=== PATIENT | male | born 1930 | race Caucasian/White ===

== ENCOUNTER 2017-04-11 08:34 | Emergency (ER) | payer MEDICARE ==
[~2017-04-11] VITALS: Ht 182.9 cm; Wt 90.7 kg
[~2017-04-11 08:34] MED LIST: AMLO10 PO; ASPI81CH PO; ATOR40TA PO; CLOP75 PO; EXEN10PI SQ; GLIP5 PO; HYDCHL25 PO; LOSA50 PO; METO50ER PO; NAC600 MG PO; SIMV40 PO; TAMS.4ER PO; Voltaren100 GM TOP; WARF1 PO; WARF2 PO
[2017-04-11] MEDS ORDERED: METPRE4DP PO (11:29)
[2017-04-11] MEDS ORDERED: Norco 5-325 Ta1 EACH PO (11:29)
[2017-12-13] MEDS ORDERED: METO50 PO (22:27)
[2017-12-16] MEDS ORDERED: CEPH500 PO (12:02)
[2017-12-16] MEDS ORDERED: GUAI600T33 PO (12:11)
[2017-12-16] MEDS ORDERED: LIDO700A20 TOP (12:11)
[2017-12-16] MEDS ORDERED: AZIT500 PO (12:12)
[2017-12-16] MEDS ORDERED: PANT20 PO (12:12)
[2017-12-16] MEDS ORDERED: ACET325 PO (12:13)
== END 2017-04-11 11:40 | disposition home or self-care (01) ==
LOC: ER 08:34
DX: M54.16 Radiculopathy, lumbar region (principal); Z79.899 Other long term (current) drug therapy; Z79.82 Long term (current) use of aspirin; Z79.01 Long term (current) use of anticoagulants; E11.9 Type 2 diabetes mellitus without complications
CPT/HCPCS: 72100; 73502; 96372; 99283; J1100; J1170

== ENCOUNTER 2017-04-13 10:16 | Emergency (ER) | payer MEDICARE ==
[~2017-04-13] VITALS: Ht 167.6 cm; Wt 98.4 kg
[~2017-04-13 10:16] MED LIST changes: +METPRE4DP PO; +Norco 5-325 Ta1 EACH PO
[2017-04-13] MEDS ORDERED: LIDO700A20 TOP (13:29)
[2017-04-13] MEDS ORDERED: Wheelchair1 EACH MC (13:29)
[2017-12-13] MEDS ORDERED: METO50 PO (22:27)
[2017-12-16] MEDS ORDERED: CEPH500 PO (12:02)
[2017-12-16] MEDS ORDERED: GUAI600T33 PO (12:11)
[2017-12-16] MEDS ORDERED: LIDO700A20 TOP (12:11)
[2017-12-16] MEDS ORDERED: PANT20 PO (12:12)
[2017-12-16] MEDS ORDERED: AZIT500 PO (12:12)
[2017-12-16] MEDS ORDERED: ACET325 PO (12:13)
== END 2017-04-13 15:04 | disposition home or self-care (01) ==
LOC: ER 10:16
DX: M54.5 Low back pain (principal); Z79.899 Other long term (current) drug therapy; Z79.82 Long term (current) use of aspirin; Z79.01 Long term (current) use of anticoagulants; Z79.52 Long term (current) use of systemic steroids; E11.9 Type 2 diabetes mellitus without complications; Z87.891 Personal history of nicotine dependence
CPT/HCPCS: 90471; 90714; 99283

== ENCOUNTER 2017-04-22 16:06 | Observation (INO) | payer MEDICARE ==
[~2017-04-22] VITALS: Ht 172.7 cm; Wt 94.2 kg
[~2017-04-22 16:06] MED LIST changes: +LIDO700A20 TOP; +Wheelchair1 EACH MC
[2017-04-22 16:39] LABS: BASOPHILS ABSOLUTE AUTO 0.01 K/mm3 (0.00-0.23); BASOPHILS PERCENT AUTO 0 % (0-2); EOSINOPHILS ABSOLUTE AUTO 0.12 K/mm3 (0.00-0.68); EOSINOPHILS PERCENT AUTO 1 % (0-6); Hematocrit 47.3 % (37.0-53.0); Hemoglobin 15.7 g/dL (13.5-17.5); IMMATURE GRAN ABSOLUTE AUTO 0.05 K/mm3 (0.00-0.10); IMMATURE GRAN PERCENT AUTO 0 % (0-1); LYMPHOCYTES ABSOLUTE AUTO 0.93 K/mm3 (0.84-5.20); LYMPHOCYTES PERCENT AUTO 8 % (21-46); MONOCYTES PERCENT AUTO 11 % (4-13); Mean Corpuscular HGB 29.6 pg (26.0-34.0); Mean Corpuscular HGB Conc 33.2 g/dL (31.5-36.5); Mean Corpuscular Volume 89 fL (80-100); Mean Platelet Volume 11.4 fL (9.1-12.4); NEUTROPHILS ABSOLUTE AUTO 9.41 K/mm3 (1.96-9.15); NEUTROPHILS PERCENT AUTO 80 % (41-73); Platelet Count 190 K/mm3 (150-400); RDW Coefficient Variation 13.2 % (11.7-14.2); RDW Standard Deviation 43.3 fL (35.1-46.3); Red Blood Cell Count 5.31 M/mm3 (4.30-5.90); White Blood Cell Count 11.82 K/mm3 (4.00-11.30)
[2017-04-22 16:56] LABS: Bun/Creatinine Ratio 37.3 (12.0-20.0); Calcium, Blood 8.9 mg/dL (8.5-10.1); Creatinine, Blood 1.5 mg/dL (0.60-1.20); Potassium, Blood 3.6 mmol/L (3.5-5.5)
[2017-04-22 17:07] LABS: International Normalized Ratio 4.76
[2017-04-22] MEDS ORDERED: HYDR1TAB94 PO (19:35)
[2017-04-22] MEDS ORDERED: SIMV40 PO (23:07)
[2017-04-22] MEDS ORDERED: METO50 PO (23:14)
[2017-04-22] MEDS ORDERED: COLACE 2-IN-11 EACH PO (23:17)
[2017-04-22] MEDS ORDERED: GLIP5 PO (23:18)
[2017-04-23 05:18] LABS: BASOPHILS ABSOLUTE AUTO 0.02 K/mm3 (0.00-0.23); BASOPHILS PERCENT AUTO 0 % (0-2); EOSINOPHILS ABSOLUTE AUTO 0.16 K/mm3 (0.00-0.68); EOSINOPHILS PERCENT AUTO 2 % (0-6); Hematocrit 44.7 % (37.0-53.0); Hemoglobin 14.5 g/dL (13.5-17.5); IMMATURE GRAN ABSOLUTE AUTO 0.03 K/mm3 (0.00-0.10); IMMATURE GRAN PERCENT AUTO 0 % (0-1); LYMPHOCYTES ABSOLUTE AUTO 0.85 K/mm3 (0.84-5.20); LYMPHOCYTES PERCENT AUTO 10 % (21-46); MONOCYTES ABSOLUTE AUTO 1.12 K/mm3 (0.16-1.47); MONOCYTES PERCENT AUTO 13 % (4-13); Mean Corpuscular HGB 29.2 pg (26.0-34.0); Mean Corpuscular HGB Conc 32.4 g/dL (31.5-36.5); Mean Corpuscular Volume 90 fL (80-100); Mean Platelet Volume 11.5 fL (9.1-12.4); NEUTROPHILS ABSOLUTE AUTO 6.79 K/mm3 (1.96-9.15); NEUTROPHILS PERCENT AUTO 76 % (41-73); Platelet Count 152 K/mm3 (150-400); RDW Coefficient Variation 13.2 % (11.7-14.2); RDW Standard Deviation 44.7 fL (35.1-46.3); Red Blood Cell Count 4.97 M/mm3 (4.30-5.90); White Blood Cell Count 8.97 K/mm3 (4.00-11.30)
[2017-04-23 05:37] LABS: Prothrombin Time Results 46.4 Sec (9.7-11.5)
[2017-04-23 05:44] LABS: International Normalized Ratio 4.27
[2017-04-23 05:53] LABS: Albumin, Blood 2.8 g/dL (3.4-5.0); Albumin/Globulin Ratio 0.9 (0.8-1.8); Bilirubin, Total 0.7 mg/dL (0.1-1.0); Bun/Creatinine Ratio 38.6 (12.0-20.0); Creatinine, Blood 1.32 mg/dL (0.60-1.20); Potassium, Blood 3.5 mmol/L (3.5-5.5); Total Protein, Blood 5.8 g/dL (6.4-8.2)
[2017-04-24 05:24] LABS: BASOPHILS ABSOLUTE AUTO 0.02 K/mm3 (0.00-0.23); BASOPHILS PERCENT AUTO 0 % (0-2); EOSINOPHILS PERCENT AUTO 1 % (0-6); Hematocrit 40.3 % (37.0-53.0); Hemoglobin 13.1 g/dL (13.5-17.5); IMMATURE GRAN ABSOLUTE AUTO 0.03 K/mm3 (0.00-0.10); IMMATURE GRAN PERCENT AUTO 0 % (0-1); LYMPHOCYTES PERCENT AUTO 11 % (21-46); MONOCYTES ABSOLUTE AUTO 1.01 K/mm3 (0.16-1.47); MONOCYTES PERCENT AUTO 13 % (4-13); Mean Corpuscular HGB 29.6 pg (26.0-34.0); Mean Corpuscular HGB Conc 32.5 g/dL (31.5-36.5); Mean Corpuscular Volume 91 fL (80-100); Mean Platelet Volume 11.2 fL (9.1-12.4); NEUTROPHILS ABSOLUTE AUTO 6.04 K/mm3 (1.96-9.15); NEUTROPHILS PERCENT AUTO 75 % (41-73); Platelet Count 145 K/mm3 (150-400); RDW Coefficient Variation 13.4 % (11.7-14.2); RDW Standard Deviation 45.2 fL (35.1-46.3); Red Blood Cell Count 4.43 M/mm3 (4.30-5.90)
[2017-04-24 05:41] LABS: International Normalized Ratio 2.74; Prothrombin Time Results 29.4 Sec (9.7-11.5)
[2017-04-24 05:52] LABS: Bun/Creatinine Ratio 29.2 (12.0-20.0); Calcium, Blood 7.7 mg/dL (8.5-10.1); Creatinine, Blood 1.3 mg/dL (0.60-1.20); Potassium, Blood 4.1 mmol/L (3.5-5.5)
[2017-04-25 05:56] LABS: International Normalized Ratio 1.98
[2017-04-26 05:44] LABS: International Normalized Ratio 1.71; Prothrombin Time Results 18.1 Sec (9.7-11.5)
[2017-04-27 05:11] LABS: International Normalized Ratio 1.98
[2017-04-28 04:41] LABS: International Normalized Ratio 2.15; Prothrombin Time Results 22.9 Sec (9.7-11.5)
[2017-04-29 06:17] LABS: International Normalized Ratio 2.31; Prothrombin Time Results 24.7 Sec (9.7-11.5)
[2017-04-30 05:39] LABS: International Normalized Ratio 3.29; Prothrombin Time Results 35.5 Sec (9.7-11.5)
[2017-04-30] MEDS ORDERED: FURO40 PO (11:39)
[2017-04-30] MEDS ORDERED: FAMO20 PO (11:40)
[2017-04-30] MEDS ORDERED: GAVILAX17 GM PO (11:41)
[2017-04-30] MEDS ORDERED: Percocet 5-3251 EACH PO (11:43)
[2017-04-30] MEDS ORDERED: TAMS.4ER PO (11:44)
[2017-04-30] MEDS ORDERED: SENN187 PO (11:46)
[2017-04-30] MEDS ORDERED: CLOP75 PO (16:36)
[2017-12-13] MEDS ORDERED: METO50 PO (22:27)
[2017-12-16] MEDS ORDERED: CEPH500 PO (12:02)
[2017-12-16] MEDS ORDERED: GUAI600T33 PO (12:11)
[2017-12-16] MEDS ORDERED: LIDO700A20 TOP (12:11)
[2017-12-16] MEDS ORDERED: AZIT500 PO (12:12)
[2017-12-16] MEDS ORDERED: PANT20 PO (12:12)
[2017-12-16] MEDS ORDERED: ACET325 PO (12:13)
== END 2017-04-30 14:12 | disposition home or self-care (01) ==
LOC: ER 16:06 → MEDS 16:07 → ER 18:13 → MEDS 18:13 → ER 04-24 13:54 → MEDS 04-24 13:54
PROVIDERS: Emergency Medicine; Internal Medicine
DX: M47.816 Spondylosis without myelopathy or radiculopathy, lumbar region (principal); M48.061 Spinal stenosis, lumbar region without neurogenic claudication; S39.012A Strain of muscle, fascia and tendon of lower back, initial encounter; I13.0 Hypertensive heart and chronic kidney disease with heart failure and stage 1 through stage 4 chronic kidney disease, or unspecified chronic kidney disease; E11.22 Type 2 diabetes mellitus with diabetic chronic kidney disease; N18.9 Chronic kidney disease, unspecified; I50.9 Heart failure, unspecified; E86.0 Dehydration; I48.91 Unspecified atrial fibrillation; K21.9 Gastro-esophageal reflux disease without esophagitis; N40.0 Benign prostatic hyperplasia without lower urinary tract symptoms; R26.9 Unspecified abnormalities of gait and mobility; I25.10 Atherosclerotic heart disease of native coronary artery without angina pectoris; I35.0 Nonrheumatic aortic (valve) stenosis; K59.00 Constipation, unspecified; Z95.5 Presence of coronary angioplasty implant and graft; Z96.643 Presence of artificial hip joint, bilateral; Z98.890 Other specified postprocedural states; Z95.0 Presence of cardiac pacemaker; Z79.82 Long term (current) use of aspirin; Z79.84 Long term (current) use of oral hypoglycemic drugs; Z79.899 Other long term (current) drug therapy; Z79.01 Long term (current) use of anticoagulants; W19.XXXA Unspecified fall, initial encounter
CPT/HCPCS: 36415; 71046; 72131; 72192; 73552; 74019; 80048; 80053; 82947; 83036; 83880; 85025; 85610; 85651; 87081; 96360; 96361; 97110; 97116; 97161; 97530; 99285; G0378; G8978; G8979; J3480; J7030

== ENCOUNTER 2018-09-08 17:11 | Inpatient (IN) | payer MEDICARE ==
[~2018-09-08] VITALS: Ht 152.4 cm; Wt 97.9 kg
[~2018-09-08 17:11] MED LIST changes: +ACET325 PO; +AZIT500 PO; +CEPH500 PO; +COLACE 2-IN-11 EACH PO; -EXEN10PI SQ; +EXEN5PENI SC; +FAMO20 PO; +FURO40 PO; +GAVILAX17 GM PO; +GUAI600T33 PO; +HYDR1TAB94 PO; +METO50 PO; +PANT20 PO; +Percocet 5-3251 EACH PO; +SENN187 PO
[2018-09-08] MEDS ORDERED: ATOR40TA (17:38)
[2018-09-08] MEDS ORDERED: POTA10T PO (17:39)
[2018-09-08] MEDS ORDERED: OMEP20ER PO (17:39)
[2018-09-08] MEDS ORDERED: MELATONIN5 M1 PO (17:39)
[2018-09-08] MEDS ORDERED: SPIR25 PO (17:40)
[2018-09-08 18:15] LABS: BASOPHILS ABSOLUTE AUTO 0.03 K/mm3 (0.00-0.23); BASOPHILS PERCENT AUTO 0 % (0-2); EOSINOPHILS ABSOLUTE AUTO 0.03 K/mm3 (0.00-0.68); EOSINOPHILS PERCENT AUTO 0 % (0-6); Hematocrit 40.3 % (37.0-53.0); Hemoglobin 11.6 g/dL (13.5-17.5); IMMATURE GRAN ABSOLUTE AUTO 0.02 K/mm3 (0.00-0.10); IMMATURE GRAN PERCENT AUTO 0 % (0-1); LYMPHOCYTES PERCENT AUTO 8 % (21-46); MONOCYTES ABSOLUTE AUTO 0.88 K/mm3 (0.16-1.47); MONOCYTES PERCENT AUTO 10 % (4-13); Mean Corpuscular HGB 22.5 pg (26.0-34.0); Mean Corpuscular HGB Conc 28.8 g/dL (31.5-36.5); Mean Corpuscular Volume 78 fL (80-100); NEUTROPHILS ABSOLUTE AUTO 7.05 K/mm3 (1.96-9.15); NEUTROPHILS PERCENT AUTO 81 % (41-73); Platelet Count 271 K/mm3 (150-400); RDW Coefficient Variation 22.5 % (11.7-14.2); RDW Standard Deviation 63.7 fL (35.1-46.3); Red Blood Cell Count 5.15 M/mm3 (4.30-5.90); White Blood Cell Count 8.71 K/mm3 (4.00-11.30)
[2018-09-08 18:54] LABS: C-REACTIVE PROTEIN, EXT RANGE 1.28 mg/dL (0.000-0.300)
[2018-09-08 19:02] LABS: Albumin, Blood 3.5 g/dL (3.4-5.0); Albumin/Globulin Ratio 0.9 (0.8-1.8); Bilirubin, Total 0.8 mg/dL (0.1-1.0); Bun/Creatinine Ratio 30.3 (12.0-20.0); Calcium, Blood 8.9 mg/dL (8.5-10.1); Creatinine, Blood 1.32 mg/dL (0.60-1.20); Globulin, Blood 3.7 g/dL (2.2-4.0); Total Protein, Blood 7.2 g/dL (6.4-8.2)
[2018-09-08 21:20] LABS: International Normalized Ratio 2.69; Prothrombin Time Results 26.1 Sec (9.7-11.5)
[2018-09-08] MEDS ORDERED: WARF1 PO (22:48)
--- NOTE | 2018-09-08 23:53 | NUR ---
PT C/O LEFT KNEE PAIN 10/25 AND VOICED THAT HE DOESN'T WANT [id number] HE TOOK THIS AT HOME AND IT DIDN'T WORK. Basil BORGES NP NOTIFIED WITH WITH FENTANYL 25-50MCG, IV, Q4P; NORCO 5/325MG, Q4P, SENNA 8.6MG BID ORDERS RECEIVED.
--- NOTE | 2018-09-09 02:24 | NUR ---
09/08/18 2220 PT ADMITTED TO ROOM 355 PER CART FROM ER. PT ORIENTED TO ROOM.
[2018-09-09 04:44] LABS: Hematocrit 39.3 % (37.0-53.0); Hemoglobin 11.4 g/dL (13.5-17.5); Mean Corpuscular HGB 22.6 pg (26.0-34.0); Mean Corpuscular Volume 78 fL (80-100); Mean Platelet Volume 10.1 fL (9.1-12.4); Platelet Count 247 K/mm3 (150-400); RDW Coefficient Variation 22.7 % (11.7-14.2); RDW Standard Deviation 62.6 fL (35.1-46.3); Red Blood Cell Count 5.04 M/mm3 (4.30-5.90)
--- NOTE | 2018-09-09 05:01 | NUR ---
SHIFT SUMMARY: 87 Y/O MALE RESTED COMFORTABLY ALL SHIFT AFTER TAKING NORCO 5/325MG PO X 1 FOR LEFT KNEE DISCOMFORT AT 0022 (ICE PACKS APPLIED AND LEFT LEG ELEVATED ON 1 PILLOW). PT HAPPY AND COOPERATIVE, DECLINED TO WEAR SUNIL HOSE PATIENT FELT THEY WOULD BE TOO TIGHT ON HIS LEGS, LLE HAS SHINY TIGHT SKIN, REDDENED, NO OPEN WOUNDS, ICE PACK APPLIED WITH ELEVATION ON ONE PILLOW BY NURSING STAFF, ALERT AND ORIENTED X 4, CHEERFUL, BED ALARM APPLIED, BED LOW POSITION, CALL LIGHT AT SIDE.
[2018-09-09 05:08] LABS: Bun/Creatinine Ratio 32.3 (12.0-20.0); Calcium, Blood 8.3 mg/dL (8.5-10.1); Creatinine, Blood 1.33 mg/dL (0.60-1.20); Potassium, Blood 4.1 mmol/L (3.5-5.5)
[2018-09-09 10:29] LABS: International Normalized Ratio 2.24; Prothrombin Time Results 22.1 Sec (9.7-11.5)
[2018-09-09 14:59] LABS: Body Fluid Crystals NEG (NEGATIVE)
--- NOTE | 2018-09-09 16:14 | NUR ---
Upon receiving a referral from an admit trigger, I found patient is lying in bed and alert. Patient is pleasant and talkative. I conduct a life review, provide companionship and emotional support.
[2018-09-09 16:19] LABS: BODY FLUID RBC 0.063 (0-0); RBC Count, Synovial Fluid 63000 /mm3 (0-0); WBC Count, Synovial Fluid 486 /mm3 (0-180)
[2018-09-09 16:24] LABS: Lymphs, Synovial Fluid 4 % (0-15); Monocytes/Macrophages, Synovia 33 % (0-65); Neutrophils, Synovial Fluid 63 % (0-24)
[2018-09-09 16:25] LABS: Appearance, Synovial Fluid Bloody (Clear); Color, Synovial Fluid Red (None-P Yel)
--- NOTE | 2018-09-09 18:54 | NUR ---
SHIFT SUMMARY DRES HAD AN ULTRASOUND GUIDED BIOPSY THIS SHIFT OF HIS L KNEE. GOT UP AND WALKED IN HALLS WITH PT WITH GAIT BELT AND WALKER AND AO1. DR LEE CAME BY AND STATED THAT HE COULD EAT, HE DIDN'T HAVE A SEPTIC JOINT. TELE DC'D. RECEIVED PO PAIN MEDS X2 THIS SHIFT TO GOOD EFFECT. DAUGHTER VISITED. AO1 TO BR, CALLED APPROPRIATELY. CALL LIGHT IN REACH, NIGHT NURSE GIVEN REPORT
[2018-09-10 04:58] LABS: BASOPHILS ABSOLUTE AUTO 0.01 K/mm3 (0.00-0.23); BASOPHILS PERCENT AUTO 0 % (0-2); EOSINOPHILS PERCENT AUTO 0 % (0-6); Hematocrit 39.9 % (37.0-53.0); Hemoglobin 11.5 g/dL (13.5-17.5); IMMATURE GRAN ABSOLUTE AUTO 0.02 K/mm3 (0.00-0.10); IMMATURE GRAN PERCENT AUTO 0 % (0-1); LYMPHOCYTES ABSOLUTE AUTO 0.42 K/mm3 (0.84-5.20); LYMPHOCYTES PERCENT AUTO 6 % (21-46); MONOCYTES ABSOLUTE AUTO 0.33 K/mm3 (0.16-1.47); MONOCYTES PERCENT AUTO 5 % (4-13); Mean Corpuscular HGB 22.9 pg (26.0-34.0); Mean Corpuscular HGB Conc 28.8 g/dL (31.5-36.5); Mean Corpuscular Volume 79 fL (80-100); Mean Platelet Volume 10.4 fL (9.1-12.4); NEUTROPHILS ABSOLUTE AUTO 6.43 K/mm3 (1.96-9.15); NEUTROPHILS PERCENT AUTO 89 % (41-73); Platelet Count 248 K/mm3 (150-400); RDW Coefficient Variation 22.4 % (11.7-14.2); RDW Standard Deviation 63.7 fL (35.1-46.3); Red Blood Cell Count 5.03 M/mm3 (4.30-5.90); White Blood Cell Count 7.21 K/mm3 (4.00-11.30)
--- NOTE | 2018-09-10 05:00 | NUR ---
SHIFT SUMMARY: 87 Y/O MALE RESTED COMFORTABLY ALL SHIFT, DECREASED REDNESS NOTED TO LLE, ABLE TO AMBULATE TO BATHROOM AND BACK VIA WALKER WITH WALKER X 1 STANDBY ASSIST, ALERT AND ORIENTED X 4, C/O LLE PAIN 07/25 AND MEDICATED WITH NORCO 5/325MG X 1 PILL WITH RELIEF FELT; BED ALARM APPLIED, BED LOW POSITION, CALL LIGHT AT SIDE.
[2018-09-10 05:12] LABS: International Normalized Ratio 1.93; Prothrombin Time Results 19.3 Sec (9.7-11.5)
[2018-09-10 05:42] LABS: Bun/Creatinine Ratio 33.3 (12.0-20.0); Calcium, Blood 8.5 mg/dL (8.5-10.1); Creatinine, Blood 1.41 mg/dL (0.60-1.20); Potassium, Blood 4.3 mmol/L (3.5-5.5)
--- NOTE | 2018-09-10 16:51 | NUR ---
PT HAS BEEN DOING WELL. AOX4 AND COOPERATIVE OF CARE. PT DOING WELL WITH PAIN. MINIMAL SWELLING OF L KNEE. TREATED FOR PAIN PER EMAR. PT STANDBY ASSIST WITH FRONT WHEELWALKER.WILL CONTINUE TO MONITOR.
[2018-09-10 19:21] LABS: Vancomycin, Trough 13.4 ug/mL (5.0-10.0)
--- NOTE | 2018-09-10 21:13 | NUR ---
PT GIVEN SHOWER THIS EVENING BY NURSING STAFF WITH COMPLETE BED LINEN CHANGE.
[2018-09-11 05:27] LABS: BASOPHILS ABSOLUTE AUTO 0.01 K/mm3 (0.00-0.23); BASOPHILS PERCENT AUTO 0 % (0-2); EOSINOPHILS PERCENT AUTO 0 % (0-6); Hematocrit 38.5 % (37.0-53.0); Hemoglobin 10.9 g/dL (13.5-17.5); IMMATURE GRAN ABSOLUTE AUTO 0.03 K/mm3 (0.00-0.10); IMMATURE GRAN PERCENT AUTO 0 % (0-1); LYMPHOCYTES ABSOLUTE AUTO 0.52 K/mm3 (0.84-5.20); LYMPHOCYTES PERCENT AUTO 5 % (21-46); MONOCYTES ABSOLUTE AUTO 0.93 K/mm3 (0.16-1.47); MONOCYTES PERCENT AUTO 9 % (4-13); Mean Corpuscular HGB 22.6 pg (26.0-34.0); Mean Corpuscular HGB Conc 28.3 g/dL (31.5-36.5); Mean Corpuscular Volume 80 fL (80-100); Mean Platelet Volume 10.1 fL (9.1-12.4); NEUTROPHILS PERCENT AUTO 86 % (41-73); NRBC ABSOLUTE 0.02 K/mm3 (0.00-0.02); NRBC Auto 0.2 /100 WBC (0.0-0.2); Platelet Count 239 K/mm3 (150-400); RDW Coefficient Variation 22.4 % (11.7-14.2); Red Blood Cell Count 4.83 M/mm3 (4.30-5.90); White Blood Cell Count 10.79 K/mm3 (4.00-11.30)
[2018-09-11 05:41] LABS: International Normalized Ratio 2.21; Prothrombin Time Results 21.8 Sec (9.7-11.5)
[2018-09-11 05:58] LABS: C-REACTIVE PROTEIN, EXT RANGE 1.16 mg/dL (0.000-0.300)
[2018-09-11 06:03] LABS: Bun/Creatinine Ratio 37.5 (12.0-20.0); Calcium, Blood 8.5 mg/dL (8.5-10.1); Creatinine, Blood 1.44 mg/dL (0.60-1.20); Potassium, Blood 4.4 mmol/L (3.5-5.5)
[2018-09-11] MEDS ORDERED: PRED20 PO (12:17)
--- NOTE | 2018-09-11 12:48 | NUR ---
DISCHARGE NOTE- PT DAUGHTER WAS PRESENT FOR DISCHARGE TEACHING. PT WAS GIVEN VERBAL AND WRITTEN DISCHARGE INSTRUCTIONS AND ACKNOWLEDGED UNDERSTANDING OF THEM. PT IV DC'D PRIOR TO DISCHARGE, PT MEDICATD FOR PAIN AT THE TIME OF DISCHARGE. PT WAS ESCORTED BY THE CONSTRUCTION WORKER VIA W/C TO THE PT ENTRANCE WHERE HIS DAUGHTER WAS WAITING. NO FURTHER QUESTIONS AT THE TIME OF DISCHARGE, PT HAD A HARD COPY SCRIPT FOR NORCO WELL SCRIPTS THAT WERE FAXED TO [facility], PER PT REQUEST. PT WAS PROVIDED WITH CONTACT INFO SHOULD QUESTIONS ARRISE.
== END 2018-09-11 12:30 | disposition home or self-care (01) | DRG 554 ==
LOC: ER 17:11 → MEDS 21:22
PROVIDERS: Family Medicine; Nurse Practitioner Acute Care; Physician Assistant; ADMIT Internal Medicine
PROC: 0S9D3ZX Drainage of Left Knee Joint, Percutaneous Approach, Diagnostic (ICD-10-PCS; principal; 2018-09-08)
DX: M10.062 Idiopathic gout, left knee (principal); I13.0 Hypertensive heart and chronic kidney disease with heart failure and stage 1 through stage 4 chronic kidney disease, or unspecified chronic kidney disease; I50.32 Chronic diastolic (congestive) heart failure; L03.116 Cellulitis of left lower limb; M17.12 Unilateral primary osteoarthritis, left knee; N18.3 Chronic kidney disease, stage 3 (moderate); E11.22 Type 2 diabetes mellitus with diabetic chronic kidney disease; Z95.0 Presence of cardiac pacemaker; Z96.643 Presence of artificial hip joint, bilateral; I25.10 Atherosclerotic heart disease of native coronary artery without angina pectoris; I48.2 Chronic atrial fibrillation; K59.00 Constipation, unspecified; Z87.891 Personal history of nicotine dependence; Z79.01 Long term (current) use of anticoagulants
CPT/HCPCS: 20610; 20611; 36415; 76942; 80048; 80053; 80202; 82947; 83605; 83880; 84550; 85025; 85027; 85610; 85651; 86140; 87040; 87070; 87075; 87081; 87205; 89051; 89060; 96365-59; 96366-59; 96367-59; 97116; 97161; 99284-25; A9270-GY; J0696; J3370; J7050; J7512

== ENCOUNTER 2018-12-10 02:32 | Inpatient (IN) | payer MEDICARE ==
[~2018-12-10] VITALS: Ht 170.2 cm; Wt 103.4 kg
[~2018-12-10 02:32] MED LIST changes: +ATOR40TA; +MELATONIN5 M1 PO; +OMEP20ER PO; +POTA10T PO; +PRED20 PO; +SPIR25 PO
[2018-12-10 03:42] LABS: BASOPHILS ABSOLUTE AUTO 0.03 K/mm3 (0.00-0.23); BASOPHILS PERCENT AUTO 0 % (0-2); EOSINOPHILS ABSOLUTE AUTO 0.12 K/mm3 (0.00-0.68); EOSINOPHILS PERCENT AUTO 2 % (0-6); Hematocrit 40.9 % (37.0-53.0); Hemoglobin 11.2 g/dL (13.5-17.5); IMMATURE GRAN ABSOLUTE AUTO 0.02 K/mm3 (0.00-0.10); IMMATURE GRAN PERCENT AUTO 0 % (0-1); LYMPHOCYTES ABSOLUTE AUTO 0.94 K/mm3 (0.84-5.20); LYMPHOCYTES PERCENT AUTO 12 % (21-46); MONOCYTES ABSOLUTE AUTO 0.97 K/mm3 (0.16-1.47); MONOCYTES PERCENT AUTO 12 % (4-13); Mean Corpuscular HGB 20.9 pg (26.0-34.0); Mean Corpuscular HGB Conc 27.4 g/dL (31.5-36.5); Mean Corpuscular Volume 76 fL (80-100); Mean Platelet Volume 10.9 fL (9.1-12.4); NEUTROPHILS ABSOLUTE AUTO 5.95 K/mm3 (1.96-9.15); NEUTROPHILS PERCENT AUTO 74 % (41-73); Platelet Count 293 K/mm3 (150-400); RDW Coefficient Variation 20.3 % (11.7-14.2); RDW Standard Deviation 54.3 fL (35.1-46.3); Red Blood Cell Count 5.36 M/mm3 (4.30-5.90); White Blood Cell Count 8.03 K/mm3 (4.00-11.30)
[2018-12-10 03:57] LABS: Albumin, Blood 3.2 g/dL (3.4-5.0); Albumin/Globulin Ratio 0.8 (0.8-1.8); Bilirubin, Total 0.5 mg/dL (0.1-1.0); Bun/Creatinine Ratio 40.7 (12.0-20.0); Calcium, Blood 8.5 mg/dL (8.5-10.1); Creatinine, Blood 1.67 mg/dL (0.60-1.20); Globulin, Blood 3.8 g/dL (2.2-4.0); Troponin I 0.081 ng/mL (0.000-0.040)
[2018-12-10 04:00] LABS: International Normalized Ratio 3.63; Prothrombin Time Results 34.2 Sec (9.7-11.5)
[2018-12-10 05:56] LABS: Percent Saturation 3.2 % (20.0-50.0)
--- NOTE | 2018-12-10 08:14 | NUR ---
DR PEGUERO IN TO SEE PT.
[2018-12-10] MEDS ORDERED: AMLO10 PO (08:37)
[2018-12-10] MEDS ORDERED: ATOR40TA PO (08:38)
[2018-12-10] MEDS ORDERED: Aspir 8181 MG PO (08:38)
[2018-12-10] MEDS ORDERED: Docusate Sodiu1 EACH PO (08:42)
[2018-12-10] MEDS ORDERED: LOSA25 PO (08:42)
--- NOTE | 2018-12-10 09:34 | NUR ---
ECHO IN PROGRESS.
[2018-12-10 09:35] LABS: International Normalized Ratio 3.98
[2018-12-10 09:44] LABS: Prothrombin Time Results 37.2 Sec (9.7-11.5)
--- NOTE | 2018-12-10 10:27 | NUR ---
ECHOCARDIOGRAM COMPLETED
[2018-12-10 11:11] LABS: Bun/Creatinine Ratio 42.6 (12.0-20.0); Calcium, Blood 8.6 mg/dL (8.5-10.1); Creatinine, Blood 1.62 mg/dL (0.60-1.20)
[2018-12-10] MEDS ORDERED: METO5 PO (11:42)
[2018-12-10] MEDS ORDERED: LIPOIC ACID PO (11:43)
[2018-12-10] MEDS ORDERED: VOLTAREN100 GM TOP (11:44)
--- NOTE | 2018-12-10 17:30 | NUR ---
SHIFT SUMMARY- PT A/O PLESANT AND COOPERATIVE. PT RECIEVING IV LASIX AND IS DIURESSING WELL. PT EXPRESSED FEELING LIKE HE STILL NEEDED TO VOID AFTER USING THE URINAL, DID BLADDER SCAN AND THERE WAS 122 RESIDUAL VOLUME. PT INTERMITENTLY COUGHING.
[2018-12-10 21:18] LABS: International Normalized Ratio 3.36
[2018-12-10 21:25] LABS: Prothrombin Time Results 31.9 Sec (9.7-11.5)
--- NOTE | 2018-12-10 22:40 | NUR ---
VITAMIN C LAB DRAW THIS RN WAS CALLED BY LAB ASKING FOR CLARIFICATION ON ORDER FOR VITAMIN C LAB DRAW. THE LAB DRAW ORDER WAS FOR VITAMIN C TID X 12 DAYS IF IT WAS MEANT TO BE A MEDICATION ORDER BUT WAS PUT IN A LAB DRAW. PT CURRENTLY HAS A MEDICATION ORDER WELL FOR VITAMIN C 500 MG PO TID TO BE GIVEN WITH FERROUS SULFATE TO AID IN ABSORBTION. THIS LAB DRAW IS A SEND OUT WELL SO RESULTS WOULD NOT BE RECIEVED IMMEDIATELY. CALLED DR. DE LA FUENTE FOR CLARIFICATION. DR. DE LA FUENTE ORDERED TO HOLD LAB DRAWS UNTIL TOMORROW WHEN DAY SHIFT HOSPITALIST OR DR. TERRY COULD CLARIFY. LAB NOTIFIED.
[2018-12-11 04:50] LABS: International Normalized Ratio 2.55
[2018-12-11 04:56] LABS: Bun/Creatinine Ratio 42.1 (12.0-20.0); Calcium, Blood 8.6 mg/dL (8.5-10.1); Creatinine, Blood 1.71 mg/dL (0.60-1.20); Potassium, Blood 4.2 mmol/L (3.5-5.5)
[2018-12-11 04:57] LABS: Prothrombin Time Results 24.8 Sec (9.7-11.5)
--- NOTE | 2018-12-11 05:29 | NUR ---
SHIFT SUMMARY PT DID NOT SLEEP WELL THIS EVENING. WAKING FREQUENTLY TO VOID. NO COMPLAINTS OF CHEST PAIN OR DISCOMFORT. TELEMETRY READING PACED W/ BBB AT 64. OLD NITRO PATCH REMOVED AT 2200 AND NEW ONE PLACED THIS AM AT 0530. PT DOES GET SOB W/ EXERTION, WHEEZING WHEN BECOMING SOB. RESOLVES ONCE AGAIN RESTING. INR THIS AM WITH LAB 2.55. TROPONIN DROPPED AGAIN THIS EVENING TO 0.082. LITTLE CHANGE TO EDEMA IN BLE'S. VITAL SIGNS STABLE. WILL CONTINUE TO MONITOR.
[2018-12-11 09:26] LABS: International Normalized Ratio 2.4; Prothrombin Time Results 23.5 Sec (9.7-11.5)
--- NOTE | 2018-12-11 17:44 | NUR ---
PT A/O COOPERATIVE AND PLESANT. PT CONTINUED TO RECIEVE IV DIRUETIC AND ADDED ORAL DIRUETIC TODAY. PT RECIEVED IV IRON THIS AFTERNOON. DR DISCUSSED WITH PT DAUGHTER PLAN FOR DISCHARGE. CONSULT WITH BOWLING BALL WEIGHER AND PACKER THIS AFTERNOON AND BOWLING BALL WEIGHER AND PACKER AGREED WITH DR. PHILLIPS PLAN OF CARE. PT WILL REMAIN UNTIL WEDNESDAY AND THERE IS NO NEED FOR PT TO GO TO [facility]IE[facility] [employer]. PT DENIES ANY CHEST PAIN THIS SHIFT
[2018-12-11 21:24] LABS: International Normalized Ratio 1.99; Prothrombin Time Results 19.8 Sec (9.7-11.5)
[2018-12-12 04:34] LABS: International Normalized Ratio 1.76; Prothrombin Time Results 17.7 Sec (9.7-11.5)
[2018-12-12 04:40] LABS: Bun/Creatinine Ratio 40.6 (12.0-20.0); Creatinine, Blood 1.87 mg/dL (0.60-1.20); Potassium, Blood 4.3 mmol/L (3.5-5.5)
[2018-12-12 04:51] LABS: Thyroid Stimulating Hormone 3.04 uIU/mL (0.360-4.800)
[2018-12-12 05:02] LABS: Free Thyroxine 1.12 ng/dL (0.70-1.60); Triiodothyronine, Free 1.78 pg/mL (2.18-3.98)
--- NOTE | 2018-12-12 05:28 | NUR ---
SHIFT SUMMARY: VSS. ALERT AND RESPONDING APPROPRIATELY TO QUESTIONS. WISHES TO SLEEP THROUGHT THE NIGHT BUT REPORTS CONSISTENTLY WAKING UP HOURLY TO VOID. PT AWARE HE IS TAKING MEDS TO DIURESE. CONTINUES WITH 4+ PITTING EDEMA IN BLE FROM TOES TO UPPER THIGHS. RED AND PEELING SKIN TO B ANT SHINS AND DORSAL SURFACE OF R FOOT. RED AREAS NOT HOT TO TOUCH. GROIN VERY RED. ANTIFUNGAL POWDER APPLIED ORDERED. DENIES PAIN WITH THIS. SLEEP STUDY COMPLETED TONIGHT. SOB OBSERVED WITH EXERTION. LARGE ABDOMEN APPEARS TO CONTRIBUTE TO SOB ELEVATING HOB HELPS SOME. 02 SATS LOW 90S ON RA. DENIES CHEST PAIN. DENIES N/V. INDEPENDENTLY USES URINAL. MAKING NEEDS KNOWN. CALL LIGHT IN REACH. BED LOW.
--- NOTE | 2018-12-12 17:20 | NUR ---
PT AOX4 AND COOPERATIVE OF CARE. PT HAS BEEN SITTING AT THE SIDE OF THE BE A LOT TODAY AND USING HIS URINIAL. PT SOUNDS LIKE HE BREATHS EASIER WHEN SITTING UPRIGHT. PT DOES TOLERATE LAYING DOWN TO SLEEP. PT CALLS APPROPRIATELY, NO DISTRESS NOTED. WILL CONTINUE TO MONITOR.
--- NOTE | 2018-12-13 04:38 | NUR ---
SHIFT SUMMARY- PT. A&O, 1 ASSIST W/WALKER TO BATHROOM. UNABLE TO SLEEP MUCH T/O THE NIGHT HAVING URINARY FREQUENCY. PT. C/O CONSTIPATION, [place] PRN GIVEN PER EMAR. NO BM YET. PT. SOB ON EXERTION, IMPROVES UPON RETURNING TO BED. O2 SATS WNL, NO APPARENT DISTRESS NOTED. PT. DENIES ANY PAIN OR DISCOMFORT. CALL LIGHT WITHIN REACH AND SIDE RAILS UP X2. PT. CALLS APPROPRIATELY WHEN NEEDS ASSISTANCE. WILL CONT TO MONITOR.
[2018-12-13 04:56] LABS: International Normalized Ratio 1.54; Prothrombin Time Results 15.7 Sec (9.7-11.5)
[2018-12-13 04:59] LABS: Bun/Creatinine Ratio 42.6 (12.0-20.0); Calcium, Blood 8.9 mg/dL (8.5-10.1); Creatinine, Blood 1.9 mg/dL (0.60-1.20); Potassium, Blood 4.3 mmol/L (3.5-5.5)
--- NOTE | 2018-12-13 18:49 | NUR ---
PT AOX4 AND COOPERATIVE OF CARE. PT DOING WELL AND HAS WORKED WITH PHYSICAL THERAPY AND OT. PT STILL GET SOB WITH TRANSFERING FROM RESTROOM. PT UP FOR MEALS AND CALLS APPROPRIATELY. DENIES PAIN. NO DISTRESS NOTED.
[2018-12-14 05:24] LABS: International Normalized Ratio 1.54; Prothrombin Time Results 15.7 Sec (9.7-11.5)
[2018-12-14] MEDS ORDERED: FURO80 PO (11:55)
[2018-12-14] MEDS ORDERED: MELA3 PO (11:56)
[2018-12-14] MEDS ORDERED: INSR10I SC (11:59)
[2018-12-14] MEDS ORDERED: Nitroglycerin1 EACH TOP (12:00)
[2018-12-14] MEDS ORDERED: SPIR25 PO (12:01)
--- NOTE | 2018-12-14 13:36 | NUR ---
PT DISCHARGED VIA W/C POV WITH DAUGHTER TO [facility] IN [place]. RX AND FOLLOWUP INSTRUCTIONS PROVIDED AND PATIENT/FAMILY VERBALIZED UNDERSTANDING. ALL VALUABLES/BELONGINGS SENT WITH PT AT TIME OF DISCHARGE.
== END 2018-12-14 13:41 | disposition home or self-care (01) | DRG 280 ==
LOC: ER 02:32 → MEDS 04:41
PROVIDERS: Emergency Medicine; Internal Medicine; Internal Medicine Cardiovascular Disease; ADMIT Internal Medicine
DX: I25.10 Atherosclerotic heart disease of native coronary artery without angina pectoris (principal); I21.4 Non-ST elevation (NSTEMI) myocardial infarction; I50.33 Acute on chronic diastolic (congestive) heart failure; I13.0 Hypertensive heart and chronic kidney disease with heart failure and stage 1 through stage 4 chronic kidney disease, or unspecified chronic kidney disease; Z95.2 Presence of prosthetic heart valve; Z95.0 Presence of cardiac pacemaker; E11.59 Type 2 diabetes mellitus with other circulatory complications; E11.22 Type 2 diabetes mellitus with diabetic chronic kidney disease; N18.3 Chronic kidney disease, stage 3 (moderate); Z79.4 Long term (current) use of insulin; K21.9 Gastro-esophageal reflux disease without esophagitis
CPT/HCPCS: 36415; 71046; 80048; 80053; 82728; 82947; 83036; 83540; 83550; 83880; 84439; 84443; 84481; 84484; 85025; 85610; 90686; 93005; 93010; 93308; 93321; 94762; 97110; 97162; 97166; 97530; 97535; 99285-25; C9113; J1815; J1940; J2916; J3430; J7050